=== PATIENT | male | born 1995 | race African-American/Black ===

== ENCOUNTER 2017-10-06 14:39 | Emergency (ER) | payer MEDICAID ==
[2017-10-06 14:48] VITALS: BP 120/93; PULSE 88; RESP 16; TEMP 98.4; O2SAT 94
--- NOTE | 2017-10-06 15:10 | EDPHY ---
H & P Time Seen by Provider: 10/06/17 15:25 HPI/ROS: Chief complaint. Cough, congestion HPI. 22-year-old male presents with emergency department with complaint of 5 days cough and congestion. He feels he has slight shortness of breath when he has cough. Cough is otherwise nonproductive. No chest discomfort. Occasional vomiting when he coughs so hard. He has been having diarrhea this week as well. Patient tells me he had fever yesterday to 103 degrees. No recent travel or known exposures. He has a history of bronchitis. No history of asthma. No abdominal pain. Nasal congestion and slight sore throat. ROS Constitutional. Fever Eyes. no problems with vision ENT. Sore throat congestion Cardiovascular. no chest pain Respiratory. Nonproductive cough and shortness of breath with cough Abdominal. No abdominal pain but occasional vomiting and diarrhea . no problems urinating MS. no calf pain/swelling, no neck/back pain, no joint pain Skin. no rash Lymph. no swollen glands Neuro. no headache, no dizziness, no difficulty walking or with speech Past Medical/Surgical History: Bronchitis and anxiety Social History: , nonsmoker, no alcohol Smoking Status: Light smoker Physical Exam: General Appearance: Alert pleasant well-developed male mild distress vital signs are stable. Afebrile Eyes: Pupils equal and round no pallor or injection. ENT, tympanic membranes are normal. Pharynx slightly injected without exudate. Mucous membranes are moist Respiratory: There are no retractions. Mild inspiratory expiratory rhonchi Cardiovascular: Regular rate and rhythm. Gastrointestinal: Abdomen is soft and nontender, no masses, bowel sounds normal. Neurological: Awake and alert, sensory and motor exams grossly normal. Skin: Warm and dry, no rashes. Musculoskeletal: Neck is supple nontender. Extremities symmetrical, full range of motion. Psychiatric: Patient is oriented X 3, there is no agitation. Constitutional: Initial Vital Signs Temperature (C) 36.9 C 10/06/17 14:46 Heart Rate 88 10/06/17 14:46 Respiratory Rate 16 10/06/17 14:46 Blood Pressure 120/93 H 10/06/17 14:46 O2 Sat (%) 94 10/06/17 14:46 O2 Delivery Mode Room Air Allergies/Adverse Reactions: No Known Allergies Allergy (Verified 10/06/17 14:46) Home Medications: Medication Instructions Recorded Albuterol Hfa Anes Only [Proair 2 puffs IH QID PRN #1 mdi 10/06/17 Hfa Icu (*)] Benzonatate [Tessalon Pearles (RX)] 100 mg PO Q4-6PRN PRN #14 cap 10/06/17 Medical Decision Making ED Course/Re-evaluation: Patient remained stable. He and I discussed treatment plan including criteria for return and importance of follow-up and further evaluation. He expresses understanding and agreement Differential Diagnosis: I believe this is a viral syndrome manifesting is bronchitis. I considered pneumonia but he has a normal lung exam except for mild rhonchi with respirations. No focal areas of consolidation by exam. Nothing to suggest sepsis or that the patient is toxic. This could well be influenza but he is well out of the window for treatment. Departure - Departure Disposition: Home, Routine, Self-Care Clinical Impression: Acute bronchitis Qualifiers: Bronchitis organism: unspecified organism Qualified Code(s): J20.9 - Acute bronchitis, unspecified Condition: Good Instructions: Acute Bronchitis (ED), How to Use a Nebulizer (ED) Additional Instructions: Drink plenty of fluids and stay hydrated. For fever Tylenol 1000 mg every 4-6 hours, ibuprofen 600 mg every 6 hr. Albuterol inhaler will help with breathing and cough. 2 puffs every 4 hr to help with breathing and cough. Tessalon Perles will also help with your cough. Return for worsening symptoms. Recheck in 3-4 days if not improving Referrals: NONE *PRIMARY CARE P,. [Primary Care Provider] - As per Instructions Stand Alone Forms: Work Excuse Prescriptions: Albuterol Hfa Anes Only [Proair Hfa Icu (*)] 2 puffs IH QID PRN #1 mdi PRN Reason: Short Of Breath/Dyspnea Benzonatate [Tessalon Pearles (RX)] 100 mg PO Q4-6PRN PRN #14 cap PRN Reason: Cough, Moderate
== END 2017-10-06 15:33 | disposition home or self-care (01) ==
LOC: CED 14:39
DX: J20.9 Acute bronchitis, unspecified (principal); F17.200 Nicotine dependence, unspecified, uncomplicated